=== PATIENT | male | born 1985 ===

== ENCOUNTER 2022-07-20 13:11 | Emergency (ER) | payer BC ==
[~2022-07-20] VITALS: Ht 180.3 cm; Wt 90.9 kg
[2022-07-20 14:25] VITALS: BP 144/69
--- NOTE | 2022-07-20 14:52 | NUR ---
Met with patient in regards to alcohol use and patient wanting treatment. I talked to patient about medication to help with cravings. Patient wanted outpatient treatment. I talked to him about [facility]. I gave him my card to call me with any questions.
[2022-07-21] MEDS ORDERED: CHLO25CA10 PO (10:47)
== END 2022-07-20 16:07 | disposition left against medical advice (07) ==
LOC: ER 13:12
DX: Z00.00 Encounter for general adult medical examination without abnormal findings (principal); Z53.21 Procedure and treatment not carried out due to patient leaving prior to being seen by health care provider

== ENCOUNTER 2022-07-21 08:07 | Emergency (ER) | payer BC ==
[~2022-07-21] VITALS: Ht 180.3 cm; Wt 90.9 kg
[2022-07-21 08:13] VITALS: BP 184/118
--- NOTE | 2022-07-21 09:10 | NUR ---
Met with patient in regards to alcohol use. Patient is here for medical clearance and to get medication to help with withdrawl. Patient went to [email or web address] yesterday and signed up for outpatient treatment. I talked to patient about getting a sponsor and getting a MD to help with prescribing Naltrexone to help in the future for cravings of alcohol.
[2022-07-21] MEDS ORDERED: chlordiazePOXIDE 25mg capsule PO ONE (09:15)
[2022-07-21 10:04] LABS: CLARITY,URINE CLEAR (Clear); GLUCOSE, URINE NEGATIVE (Neg); KETONES,URINE >=80 mg/dl (Neg); LEUKOCYTE ESTERASE ,URINE NEGATIVE (Neg); NITRITES, URINE NEGATIVE (Neg); OCCULT BLOOD,URINE TRACE-INTACT (Neg); PROTEIN,URINE 100 mg/dl (Neg)
[2022-07-21 10:10] LABS: COLOR,URINE DARK YELLOW (Yellow); UA COLLECTION TYPE URINAL
[2022-07-21 10:41] LABS: BACTERIA,URINE NONE SEEN /HPF (Neg); RBC,URINE NONE SEEN /HPF (0-2); SQUAMOUS EPITHELIAL CELL,UR FEW /LPF (FEW); WBC,URINE 0-4 /HPF (0-4)
[2022-07-21 10:42] LABS: MUCUS STRANDS FEW /LPF (Neg)
[2022-07-21 10:46] LABS: URINE AMPHETAMINE SCREEN NEGATIVE (Neg); URINE BARBITUATE SCREEN NEGATIVE (Neg); URINE BENZODIAZEPINES SCREEN NEGATIVE (Neg); URINE CANNABINOID SCREEN NEGATIVE (Neg); URINE COCAINE SCREEN NEGATIVE (Neg); URINE METHADONE SCREEN NEGATIVE (Neg); URINE OPIATE SCREEN NEGATIVE (Neg); URINE PHENCYCLIDINE SCREEN NEGATIVE (Neg)
[2022-07-21] MEDS ORDERED: CHLO25CA10 PO (10:47)
[2022-07-21 10:48] LABS: FINE GRANULAR CAST 0-3 /LPF (NEGATIVE); HYALINE CASTS 0-3 /LPF (NEGATIVE)
== END 2022-07-21 11:05 | disposition home or self-care (01) ==
LOC: ER 08:07
DX: F10.129 Alcohol abuse with intoxication, unspecified (principal); Z79.899 Other long term (current) drug therapy; Y90.0 Blood alcohol level of less than 20 mg/100 ml
CPT/HCPCS: 36415; 80305; 80320; 81001; 99283